=== PATIENT | female | born 1975 | race Caucasian/White ===

== ENCOUNTER 2017-09-17 09:23 | Emergency (ER) | payer MEDICAID ==
[~2017-09-17] VITALS: Ht 160 cm; Wt 61.2 kg
[2017-09-17 09:27] VITALS: Ht 160 cm; Wt 61.2 kg
[2017-09-17 10:58] VITALS: BP 115/81
== END 2017-09-17 10:58 | disposition home or self-care (01) ==
LOC: ED 09:23
DX: R51 Headache (principal); M54.2 Cervicalgia; R30.0 Dysuria
CPT/HCPCS: J1885